=== PATIENT | female | born 1955 | race Caucasian/White ===

== ENCOUNTER 2019-07-03 05:45 | Emergency (ER) | payer MEDICARE, MEDICAID ==
[2019-07-03] MEDS ORDERED: Lisinopril 10 MG Tab PO ONE (06:11)
[2019-07-03] MEDS ORDERED: cloNIDine 0.1 MG Tab PO ONE (06:11)
[2019-07-03] MEDS ORDERED: LORazepam 1 MG Tab PO ONE (06:11)
--- NOTE | 2019-07-03 06:17 | EDM.PDOC ---
ED HPI GENERAL MEDICAL PROBLEM - General Chief Complaint: Respiratory Problem Stated Complaint: SOB AND COUGHING KIDNEY PAIN Time Seen by Provider: 07/03/19 06:01 Source of Information: Reports: Patient History Limitations: Reports: No Limitations - History of Present Illness INITIAL COMMENTS - FREE TEXT/NARRATIVE: This is a 63-year-old female. She comes tonight because her friends have been telling her she is got COVID and she is extremely anxious about this. She apparently just moved from [place] to [place] and does not have a family doctor. She has been off her blood pressure medication for anxiety medication and several other medications that I do not know but she says she has a list of them back at her house and did not bring it to the ER. She is obviously anxious and shaky. She rambles on quite extensively and it is sometimes difficult to understand exactly what she is saying. She is using a lot of hand gestures when she is talking in this pressure of speech type activity. The patient does smoke about half a pack per day and has COPD. She states she has had a little cough over the last couple of days and she feels like she is short of breath at times but in the ER on room air her pulse ox is 96%. She also complains of back pain and thinks it is her kidneys bothering her but she has no urinary complaints. Nausea vomiting or diarrhea. Denies any fever. Generalized Pain Score (Numeric/FACES): 5 - Related Data Allergies Allergy/AdvReac Type Severity Reaction Status Date / Time codeine Allergy Rash Verified 07/03/19 05:59 Penicillins Allergy Rash Verified 07/03/19 05:59 sumatriptan [From Imitrex] Allergy Rash Verified 07/03/19 05:59 Home Meds: Home Meds LORazepam [Ativan] 1 mg PO TID PRN #15 tablet 07/03/19 [Rx] cephALEXin [Keflex] 500 mg PO TID #15 capsule 07/03/19 [Rx] lisinopriL [Lisinopril] 10 mg PO QAM #30 tablet 07/03/19 [Rx] lisinopriL [Lisinopril] 40 mg PO 07/03/19 [History] ED ROS GENERAL - Review of Systems Review Of Systems: See Below Constitutional: Denies: Fever, Chills HEENT: Denies: Rhinitis Respiratory: Reports: Shortness of Breath, Cough. Denies: Wheezing Cardiovascular: Denies: Chest Pain Endocrine: Reports: No Symptoms GI/Abdominal: Denies: Abdominal Pain, Diarrhea, Nausea, Vomiting : Reports: No Symptoms Musculoskeletal: Reports: Back Pain Skin: Reports: No Symptoms Neurological: Reports: No Symptoms Psychiatric: Reports: Anxiety, Other (Pressure of speech) Hematologic/Lymphatic: Reports: No Symptoms ED EXAM, GENERAL - Physical Exam Exam: See Below Exam Limited By: No Limitations General Appearance: Alert, WD/WN, Anxious, Thin Eye Exam: Bilateral Eye: Normal Inspection Ears: Normal External Exam, Normal Canal, Normal TMs Nose: Normal Inspection Throat/Mouth: Normal Lips, Normal Oropharynx, Normal Voice, No Airway Compromise Head: Normocephalic Neck: Supple Respiratory/Chest: No Respiratory Distress, Lungs Clear, Normal Breath Sounds Cardiovascular: Regular Rate, Rhythm, No Murmur GI/Abdominal: Soft, Non-Tender Back Exam: Full Range of Motion, Other (Planes of flank pain bilaterally but she has no CVAT) Extremities: Normal Inspection, Normal Range of Motion, Other (Does appear to have some mild cyanosis of her hands and feet but it appears to be chronic not acute) Neurological: Alert, Oriented Psychiatric: Anxious, Tearful Skin Exam: Warm, Dry Course - Vital Signs Last Recorded V/S: Last Vital Signs Temp 97.2 F 07/03/19 06:00 Pulse 96 07/03/19 06:00 Resp 16 07/03/19 06:00 BP 155/81 H 07/03/19 06:17 Pulse Ox 97 07/03/19 06:00 - Orders/Labs/Meds Orders: Active Orders 24 hr Category Date Time Status Chest 2V [CR] Stat Exams 07/03/19 06:12 Taken cefTRIAXone 1 GM with Lidocaine 1% 2.1 ML IM Med 07/03/19 07:45 Ordered cefTRIAXone [Rocephin] 1 gm Lidocaine 1% [Xylocaine 1%] 2.1 ml IM Q24H Labs: Laboratory Tests 07/03/19 07/03/19 07/03/19 Range/Units 06:29 06:29 06:56 WBC 9.91 (3.98-10.04) K/mm3 RBC 3.69 L (3.98-5.22) M/mm3 Hgb 10.5 L (11.2-15.7) gm/dl Hct 33.8 L (34.1-44.9) % MCV 91.6 (79.4-94.8) fl MCH 28.5 (25.6-32.2) pg MCHC 31.1 L (32.2-35.5) g/dl RDW Std Deviation 54.7 H (36.4-46.3) fL Plt Count 361 (182-369) K/mm3 MPV 10.2 (9.4-12.3) fl Neut % (Auto) 62.7 (34.0-71.1) % Lymph % (Auto) 22.3 (19.3-51.7) % [place] % (Auto) 11.9 (4.7-12.5) % Eos % (Auto) 2.5 (0.7-5.8) Baso % (Auto) 0.5 (0.1-1.2) % Neut # (Auto) 6.21 H (1.56-6.13) K/mm3 Lymph # (Auto) 2.21 (1.18-3.74) K/mm3 [place] # (Auto) 1.18 H (0.24-0.36) K/mm3 Eos # (Auto) 0.25 (0.04-0.36) K/mm3 Baso # (Auto) 0.05 (0.01-0.08) K/mm3 Sodium 140 (136-145) mEq/L Potassium 3.4 L (3.5-5.1) mEq/L Chloride 104 (98-107) mEq/L Carbon Dioxide 21 (21-32) mEq/L Anion Gap 18.4 H (5-15) BUN 31 H (7-18) mg/dL Creatinine 1.1 H (0.55-1.02) mg/dL Est Cr Clr Drug Dosing 48.33 mL/min Estimated GFR (MDRD) 50 (>60) mL/min BUN/Creatinine Ratio 28.2 H (14-18) Glucose 98 (80-115) mg/dL Calcium 9.1 (8.5-10.1) mg/dL Total Bilirubin 0.7 (0.2-1.0) mg/dL AST 44 H (15-37) U/L ALT 39 (14-59) U/L Alkaline Phosphatase 96 (46-116) U/L Total Protein 8.2 (6.4-8.2) g/dl Albumin 3.9 (3.4-5.0) g/dl Globulin 4.3 gm/dL Albumin/Globulin Ratio 0.9 L (1-2) Urine Color Yellow (Yellow) Urine Appearance Clear (Clear) Urine pH 6.0 (5.0-8.0) Ur Specific Griffith > or = 1.030 (1.005-1.030) Urine Protein 2+ H (Negative) Urine Glucose (UA) Negative (Negative) Urine Ketones 1+ H (Negative) Urine Occult Blood 2+ H (Negative) Urine Nitrite Negative (Negative) Urine Bilirubin 1+ H (Negative) Urine Urobilinogen 0.2 (0.2-1.0) Ur Leukocyte Esterase 1+ H (Negative) Urine RBC 5-10 H (0-5) /hpf Urine WBC 20-30 H (0-5) /hpf Ur Squamous Epith Cells 5-10 H (0-5) /hpf Urine Bacteria Rare (FEW) /hpf Urine Mucus Not seen (FEW) /hpf Meds: Medications Discontinued Medications Generic Name Dose Route Start Last Admin Trade Name Freq PRN Reason Stop Dose Admin Clonidine HCl 0.1 mg 07/03/19 06:11 07/03/19 06:17 Catapres PO 07/03/19 06:12 0.1 mg ONETIME ONE Administration Lisinopril 10 mg 07/03/19 06:11 07/03/19 06:16 Prinivil PO 07/03/19 06:12 10 mg ONETIME ONE Administration Lorazepam 1 mg 07/03/19 06:11 07/03/19 06:16 Ativan PO 07/03/19 06:12 1 mg ONETIME ONE Administration - Radiology Interpretation Free Text/Narrative:: Chest x-ray does not show any acute infiltrates though she does have some vascularity noted in the left lower lobe. She does have COPD changes as well - Re-Assessments/Exams Free Text/Narrative Re-Assessment/Exam: 07/03/19 07:44 I spoke to the patient regarding her CBC and CMP as well as her urinalysis. She does have a urinary tract infection noted. I think she has some acute bronchitis or chronic bronchitis as well. Her pulse ox on room air is approximately 96%. I reassured her that she does not have the symptoms of the COVID virus and she needs to quit worrying about it at this time. I went to put her back on her lisinopril and give her a few Ativan for home and give her the name of physician to follow-up with. Departure - Departure Time of Disposition: 07:45 Disposition: Home, Self-Care 01 Condition: Fair Clinical Impression: Elevated blood pressure reading, Generalized anxiety disorder Urinary tract infection Qualifiers: Urinary tract infection type: acute cystitis Hematuria presence: without hematuria Qualified Code(s): N30.00 - Acute cystitis without hematuria Acute bronchitis Qualifiers: Bronchitis organism: unspecified organism Qualified Code(s): J20.9 - Acute bronchitis, unspecified COPD (chronic obstructive pulmonary disease) Qualifiers: COPD type: unspecified COPD Qualified Code(s): J44.9 - Chronic obstructive pulmonary disease, unspecified - Discharge Information *PRESCRIPTION DRUG MONITORING PROGRAM REVIEWED*: Not Applicable *COPY OF PRESCRIPTION DRUG MONITORING REPORT IN PATIENT MEKHI: Not Applicable Prescriptions: cephALEXin [Keflex] 500 mg PO TID #15 capsule lisinopriL [Lisinopril] 10 mg PO QAM #30 tablet LORazepam [Ativan] 1 mg PO TID PRN #15 tablet PRN Reason: Anxiety Instructions: Urinary Tract Infection, Adult, Acute Bronchitis, Adult Referrals: Connie Goldsmith PA-C [Physician Retail Department Manager] - Forms: ED Department Discharge Additional Instructions: Take the antibiotics faithfully until they are finished, use the Ativan as needed for your anxiety, start back on your lisinopril and take it daily, you need to follow-up with your primary care provider this coming week for recheck, return to the ER if needed Sepsis Event Note - Evaluation Sepsis Screening Result: No Definite Risk - Focused Exam Vital Signs: Vital Signs Temp Pulse Resp BP BP Pulse Ox 07/03/19 06:17 155/81 H 07/03/19 06:16 155/81 H 07/03/19 06:00 97.2 F 96 16 183/96 H 97 Date Exam was Performed: 07/03/19 Time Exam was Performed: 07:44 - My Orders Last 24 Hours: My Active Orders 07/03/19 06:12 Chest 2V [CR] Stat 07/03/19 07:45 cefTRIAXone 1 GM with Lidocaine 1% 2.1 ML IM cefTRIAXone [Rocephin] 1 gm Lidocaine 1% [Xylocaine 1%] 2.1 ml IM Q24H - Assessment/Plan Last 24 Hours: My Active Orders 07/03/19 06:12 Chest 2V [CR] Stat 07/03/19 07:45 cefTRIAXone 1 GM with Lidocaine 1% 2.1 ML IM cefTRIAXone [Rocephin] 1 gm Lidocaine 1% [Xylocaine 1%] 2.1 ml IM Q24H
[2019-07-03] MEDS ORDERED: cefTRIAXone 1 GM, Lidocaine 1% 2.1 ML IM SCH ×2 (07:45)
--- NOTE | 2019-07-03 14:13 | CR ---
Chest: 2 views of the chest were obtained. Comparison: No previous chest imaging. Heart size and mediastinum are normal. Lungs are clear with no acute parenchymal change. Bony structures are grossly intact. Impression: 1. Nothing acute is appreciated on 2 view chest x-ray. Diagnostic code #1 This report was dictated in MDT
== END 2019-07-03 07:56 | disposition home or self-care (01) ==
LOC: JD.ED 05:45
DX: J44.0 Chronic obstructive pulmonary disease with (acute) lower respiratory infection (principal); J20.9 Acute bronchitis, unspecified; F41.1 Generalized anxiety disorder; N30.00 Acute cystitis without hematuria; R03.0 Elevated blood-pressure reading, without diagnosis of hypertension; Z88.5 Allergy status to narcotic agent; Z88.0 Allergy status to penicillin; Z88.8 Allergy status to other drugs, medicaments and biological substances; Z79.899 Other long term (current) drug therapy
CPT/HCPCS: 36415; 71046; 80053; 81001; 85025; 99285; A9270; J0696; J2001; 99284